=== PATIENT | male | born 1995 | race Caucasian/White ===

== ENCOUNTER 2020-01-23 17:33 | Emergency (ER) | payer BC ==
[~2020-01-23] VITALS: Ht 167.6 cm; Wt 60.0 kg
[2020-01-23 17:34] VITALS: TEMP 98.2
[2020-01-23 18:07] LABS: BASO % 0.3 % (0.0-2.0); EOS % 0.2 % (0-4.0); GRAN % 76.7 % (42.2-75.2); HEMOGLOBIN 15.9 g/dl (13.5-18.0); LYMPH # 0.9 (1.2-3.4); LYMPH % 13.6 % (20.0-51.0); MEAN CELL VOLUME 89 fl (80.0-100.0); MEAN CORPUSCULAR HEMOGLOBIN 32 pg (27.0-31.0); MEAN CORPUSCULAR HGB CONC 36 g/dl (33.0-37.0); MONO # 0.6 (0.1-0.6); PLATELET COUNT 266 K/mm3 (130-400); RED BLOOD COUNT 4.95 M/mm3 (4.20-5.60); REDCELL DISTRIBUTION WIDTH-CV 12.4 % (11.5-14.5)
[2020-01-23 18:19] LABS: ALANINE AMINOTRANSFERASE 25 U/L (4-49); ALKALINE PHOSPHATASE 65 U/L (50-136); ANION GAP 10 mmol/L (7-16); AST,SGOT 27 U/L (15-37); BILIRUBIN,TOTAL 0.6 mg/dL (0.0-1.0); BLOOD UREA NITROGEN 13 mg/dL (9-20); CALCIUM 9.6 mg/dL (8.4-10.2); CARBON DIOXIDE 25 mmol/L (22-30); CHLORIDE 106 mmol/L (98-107); CREATININE, serum 1.11 (0.66-1.25); GLUCOSE 105 mg/dL (74-106); LIPASE 83 U/L (23-300); POTASSIUM 4.1 mmol/L (3.4-5.0); SODIUM 141 mmol/L (137-145); TOTAL PROTEIN 8.2 gm/dL (6.4-8.2)
[2020-01-23 18:41] LABS: ALCOHOL(ethanol),MEDICAL < 10 mg/dL; TROPONIN-I < 0.012 ng/mL (0.000-0.035)
[2020-01-23 19:00] VITALS: BP 133/93; PULSE 81
== END 2020-01-23 19:03 | disposition home or self-care (01) ==
LOC: COL.ER 17:33
PROVIDERS: Emergency Medicine
DX: R07.9 Chest pain, unspecified (principal); F41.9 Anxiety disorder, unspecified; R20.2 Paresthesia of skin; R00.2 Palpitations; F10.129 Alcohol abuse with intoxication, unspecified